=== PATIENT | female | born 1965 | race Caucasian/White ===

== ENCOUNTER → 2018-06-30 | Emergency (ER) | payer SELFPAY ==
[~2018-06-30] MED LIST: Flomax 0.4 MG ONE; Flomax 0.4 MG PO SCH; MORPHINE SULFATE 2 MG INJ IV ONE; MORPHINE SULFATE 2 MG INJ ONE; PYRIDIUM 200 MG ONE; PYRIDIUM 200 MG PO STA; ROCEPHIN 1 Gm-D5w 50 ml Bag** 1 G/50 ML IVPB IV ONE; ROCEPHIN 1 Gm-D5w 50 ml Bag** 1 G/50 ML IVPB IV STA; Sodium Chloride 0.9% 1000 ML 1,000 ML IV STA; Sodium Chloride 0.9% 1000 ML 1,000 ML ONE; Zofran 4 MG/2 ML VIAL IV ONE; Zofran 4 MG/2 ML VIAL ONE
[2018-06-30 05:04] LABS: BASOPHIL % 0.2 % (0.0-0.4); Basophil (Absolute #) 0.02 (0-0.4); Eosinophil % 0.9 % (0.00-5.0); Granulocyte Absolute (ANC) 8.19 (1.4-6.9); Granulocytes % 70.6 % (36.0-66.0); Hemoglobin 13.4 gm/dl (12.0-16.0); Lymphocyte (Absolute #) 2.43 (1.0-4.6); Lymphocytes % 20.9 % (24.0-44.0); Mean Cell Volume 89.3 fl (78-100); Mean Corpuscular Hemoglobin 29.2 pg (26-32); Mean Corpuscular Hgb Concent. 32.7 g/dl (32-36); Mean Platelet Volume 10.8 fl (6-9.5); Monocyte (Absolute #) 0.86 (0.0-1.3); Monocytes % 7.4 % (0.0-12.0); Platelet Count 291 K/mm3 (150-450); Red Blood Count 4.59 M/mm3 (4.1-5.4); Red Cell Distribution Width 13.3 % (11.5-14.0); White Blood Count 11.6 K/mm3 (4.0-10.5)
[2018-06-30 05:13] LABS: ALBUMIN 4.6 g/dL (3.5-5.0); ALKALINE PHOSPHATASE 96 U/L (38-126); ANION GAP 12.4 MEQ/L (5-15); BLOOD UREA NITROGEN 14 mg/dL (7-17); CHLORIDE 100 mmol/L (98-107); Calcium 9.5 mg/dL (8.4-10.2); Carbon Dioxide 29 mmol/L (22-30); Glucose 113 mg/dL (74-106); Potassium 3.7 mmol/L (3.5-5.1); SGOT/AST 49 U/L (14-36); SGPT/ALT 28 U/L (0-35); SODIUM 137 mmol/L (137-145); Total Protein 7.5 g/dL (6.3-8.2)
[2018-06-30 05:16] LABS: Appearance CLEAR (CLEAR); Bacteria RARE /HPF (NEGATIVE); Bilirubin NEGATIVE (NEGATIVE); Blood LARGE Ery/ul (0-5); Glucose NEGATIVE (NEGATIVE); Ketones NEGATIVE (NEGATIVE); Leukocyte Esterase SMALL (NEGATIVE); Nitrite NEGATIVE (NEGATIVE); Protein,Urine Dip NEGATIVE (Negative); Specific Gravity 1.002 (1.005-1.025); Urobilinogen NEGATIVE mg/dL (0-1)
[2018-06-30 05:19] VITALS: BP 122/71; O2SAT 100
--- NOTE | 2018-06-30 05:57 | ERPHSYRPT ---
- History of Present Illness Historian: patient Exam Limitations: no limitations Patient Subjective Stated Complaint: pt is alert and oriented. pt is ambulatory with a steady gait. pt comes in with c/o right flank pain with difficulty urinating, burning with urination, bladder spasms, and urgency. pt urine is pale yellow, very clear. pt states these symptoms started on 06/29/18. Triage Nursing Assessment: see above Physician History: Pt is a 53 y/o female that presented with severe dysuria, bladder spasms, and frequency. Pt denies F/C/S. No SOB or cough. No diarrhea and abdominal pain. Pt does have N/V, and has CVA pain on the R. Timing/Duration: today, gradual onset Activities at Onset: none Quality: aching, burning, cramping Abdominal Pain Onset Location: flank (on R) Pain Radiation: no radiation Severity of Pain-Max: severe Severity of Pain-Current: moderate Modifying Factors: Improves With: nothing Previous symptoms: no prior history Allergies/Adverse Reactions: No Known Drug Allergies Allergy (Unverified 06/30/18 04:45) Immunizations Up to Date: Yes - Review of Systems Constitutional: No Fever, No Chills Respiratory: No Cough, No Dyspnea Cardiac: No Chest Pain, No Edema, No Syncope Abdominal/Gastrointestinal: No Abdominal Pain, No Nausea, No Vomiting, No Diarrhea Genitourinary Symptoms: Dysuria, Frequency, Urgency, Flank Pain (On R) Musculoskeletal: No Back Pain, No Neck Pain Neurological: No Dizziness, No Focal Weakness, No Sensory Changes Endocrine: No Symptoms - Past Medical History Pertinent Past Medical History: No Neurological History: No Pertinent History ENT History: No Pertinent History Cardiac History: No Pertinent History Respiratory History: No Pertinent History Endocrine Medical History: No Pertinent History Musculoskeletal History: No Pertinent History GI Medical History: No Pertinent History History: Other Psycho-Social History: No Pertinent History Female Reproductive Disorders: Endometriosis - Past Surgical History Past Surgical History: Yes Neuro Surgical History: No Pertinent History Cardiac: No Pertinent History Respiratory: No Pertinent History Gastrointestinal: No Pertinent History Genitourinary: No Pertinent History Musculoskeletal: No Pertinent History Female Surgical History: Other Other Surgical History: laproscopic surgery for Endo, and possible tubal - Social History Smoking Status: Never smoker Drug Use: none - Female History Hx Now: No - Nursing Vital Signs Nursing Vital Signs: Initial Vital Signs Temperature 97.5 F 06/30/18 04:33 Pulse Rate 82 06/30/18 04:33 Respiratory Rate 16 06/30/18 04:33 Blood Pressure 124/73 06/30/18 04:33 O2 Sat by Pulse Oximetry 99 06/30/18 04:33 Pain Scale Pain Intensity 9 - Physical Exam General Appearance: moderate distress, alert Eye Exam: PERRL/EOMI, eyes nml inspection Ears, Nose, Throat Exam: normal ENT inspection, pharynx normal, moist mucous membranes Respiratory Exam: normal breath sounds, lungs clear, No respiratory distress Cardiovascular Exam: regular rate/rhythm, normal heart sounds Gastrointestinal/Abdomen Exam: soft, No tenderness, No mass Back Exam: CVA tenderness (On the right) Extremity Exam: normal inspection, normal range of motion, pelvis stable Neurologic Exam: alert, oriented x 3, cooperative, normal mood/affect, nml cerebellar function, sensation nml, No motor deficits SpO2 Interpretation: normal SpO2: 100 - Course Nursing assessment & vital signs reviewed: Yes - CT Exams Abdomen/Pelvis CT Interpretation: Other (Hydronephrosis on the R, bladder thickening) Ordered Tests: Active Orders 24 hr Category Date Time Status IV Insertion STAT Care 06/30/18 04:51 Active ABDOMEN AND PELVIS W/0 CONTRAS [CT] Stat Exams 06/30/18 04:52 Taken CBC W DIFF Stat Lab 06/30/18 04:55 Completed CMP Stat Lab 06/30/18 04:55 Completed CULTURE,URINE Stat Lab 06/30/18 04:58 Received UA W/RFX UR CULTURE Stat Lab 06/30/18 04:58 Completed Medication Summary Generic Name Dose Route Start Last Admin Trade Name Freq PRN Reason Stop Dose Admin Ceftriaxone Sodium/Dextrose 1 g in 50 mls @ 100 mls/hr 06/30/18 06:23 06:29 Rocephin 1 Gm-D5w 50 Ml Bag IV 06/30/18 06:52 1 g/hr STAT STA 50 mls/hr Administration Discontinued Medications Generic Name Dose Route Start Last Admin Trade Name Freq PRN Reason Stop Dose Admin Sodium Chloride 1,000 mls @ 999 mls/hr 06/30/18 04:51 06/30/18 05:12 Sodium Chloride 0.9% 1000 Ml IV 06/30/18 05:51 999 mls/hr .Q1H1M STA Administration Sodium Chloride Confirm 06/30/18 04:58 Sodium Chloride 0.9% 1000 Ml Administered 06/30/18 04:59 Dose 1,000 mls @ ud .ROUTE .STK-MED ONE Ceftriaxone Sodium/Dextrose Confirm 06/30/18 06:26 Rocephin 1 Gm-D5w 50 Ml Bag Administered 06/30/18 06:27 Dose 1 g in 50 mls @ ud IV .STK-MED ONE Morphine Sulfate 2 mg 06/30/18 04:51 Morphine Sulfate 2 Mg Inj IV 06/30/18 04:52 STAT ONE Morphine Sulfate Confirm 06/30/18 04:58 Morphine Sulfate 2 Mg Inj Administered 06/30/18 04:59 Dose 2 mg .ROUTE .STK-MED ONE Ondansetron HCl 4 mg 06/30/18 05:34 06/30/18 05:40 Zofran 4 Mg/2 Ml Vial IV 06/30/18 05:35 4 mg STAT ONE Administration Ondansetron HCl Confirm 06/30/18 05:35 Zofran 4 Mg/2 Ml Vial Administered 06/30/18 05:36 Dose 4 mg .ROUTE .STK-MED ONE Phenazopyridine HCl 200 mg 06/30/18 04:53 06/30/18 05:09 Pyridium 200 Mg PO 06/30/18 04:54 200 mg ONCE STA Administration Phenazopyridine HCl Confirm 06/30/18 04:58 Pyridium 200 Mg Administered 06/30/18 04:59 Dose 200 mg .ROUTE .STK-MED ONE Lab/Rad Data: Laboratory Result Diagrams 06/30/18 04:55 06/30/18 04:55 Laboratory Results 06/30/18 06/30/18 06/30/18 Range/Units 04:58 04:55 04:55 WBC 11.6 H (4.0-10.5) K/mm3 RBC 4.59 (4.1-5.4) M/mm3 Hgb 13.4 (12.0-16.0) gm/dl Hct 41.0 (35-47) % MCV 89.3 (78-100) fl MCH 29.2 (26-32) pg MCHC 32.7 (32-36) g/dl RDW 13.3 (11.5-14.0) % Plt Count 291 (150-450) K/mm3 MPV 10.8 H (6-9.5) fl Gran % 70.6 H (36.0-66.0) % Eos # (Auto) 0.10 (0-0.5) Absolute Lymphs (auto) 2.43 (1.0-4.6) Absolute Monos (auto) 0.86 (0.0-1.3) Lymphocytes % 20.9 L (24.0-44.0) % Monocytes % 7.4 (0.0-12.0) % Eosinophils % 0.9 (0.00-5.0) % Basophils % 0.2 (0.0-0.4) % Absolute Granulocytes 8.19 H (1.4-6.9) Basophils # 0.02 (0-0.4) Sodium 137 (137-145) mmol/L Potassium 3.7 (3.5-5.1) mmol/L Chloride 100 (98-107) mmol/L Carbon Dioxide 29 (22-30) mmol/L Anion Gap 12.4 (5-15) MEQ/L BUN 14 (7-17) mg/dL Creatinine 0.60 (0.52-1.04) mg/dL Estimated GFR > 60.0 ML/MIN Glucose 113 H (74-106) mg/dL Calcium 9.5 (8.4-10.2) mg/dL Total Bilirubin 0.40 (0.2-1.3) mg/dL AST 49 H (14-36) U/L ALT 28 (0-35) U/L Alkaline Phosphatase 96 (38-126) U/L Serum Total Protein 7.5 (6.3-8.2) g/dL Albumin 4.6 (3.5-5.0) g/dL Urine Color COLORLESS (YELLOW) Urine Appearance CLEAR (CLEAR) Urine pH 7.0 (5-6) Ur Specific [place] 1.002 (1.005-1.025) Urine Protein NEGATIVE (Negative) Urine Ketones NEGATIVE (NEGATIVE) Urine Blood LARGE (0-5) Joe/ul Urine Nitrite NEGATIVE (NEGATIVE) Urine Bilirubin NEGATIVE (NEGATIVE) Urine Urobilinogen NEGATIVE (0-1) mg/dL Ur Leukocyte Esterase SMALL (NEGATIVE) Urine WBC (Auto) 11-15 (0-5) /HPF Urine RBC (Auto) NONE (0-2) /HPF U Epithel Cells (Auto) NONE (FEW) /HPF Urine Bacteria (Auto) RARE (NEGATIVE) /HPF Urine Culture Reflexed YES (NO) Urine Glucose NEGATIVE (NEGATIVE) mg/dL - Progress Progress: unchanged Progress Note: 06/30/18 05:59 Pt is a 53 y/o female with severe dysuria, frequency and urgency. She did get 200mg Pyridium and CT. Pt refused Morphine. Zofran 4mg was given once. Ceftriaxone 1gr IV was given. CT showes hydronephrosis on the R, and bladder thickening. [facility], and Dr Jauregui accepted the pt. Urology will be able to see the pt there. If needed, will give Ativan before leaving the ER with ambulance. 06/30/18 06:36 - Departure Time of Disposition: 06:38 Departure Disposition: Transfer Clinical Impression: Hydronephrosis Condition: Stable Critical Care Time: No Referrals: MARY KAUR [Primary Care Provider] - Additional Instructions: [facility] to [facility]. She got Zofran 4mg IV, Rocephin 1gr IV, Flomax 0.4 PO, and Pyridium 200mg once. Dr Jauregui accepting.
[2018-06-30 06:44] VITALS: PULSE 85
--- NOTE | 2018-06-30 09:36 | XRAY ---
Indication: Dysuria. Urgency. Abdomen/flank pain. Multiple contiguous axial images obtained through the abdomen and pelvis without contrast as ordered. Comparison: None Lung bases are clear. Heart is not enlarged. Noncontrasted stomach and bowel loops appear nonobstructed. Normal appendix. No free fluid/air. Minimal right hydronephrosis and slightly prominent right ureter without calculus, possibly from recent passage of calculus. Incidental 2 cm right adrenal adenoma and 1 cm inferior right lobe hepatic cyst. Remaining liver, gallbladder, pancreas, spleen, left adrenal gland, kidneys, ureters, bladder, and aorta appear unremarkable for noncontrast exam. Osseous structures intact. No ventral or inguinal hernias. Impression: 1. Minimal right hydronephrosis and minimal prominent right ureter, possibly from recent passage of calculus. 2. Incidental 2 cm right adrenal adenoma and 1 cm hepatic cyst. Comment: Preliminary interpretation was made by [facility] who does not report incidental right adrenal mass. CT DI 20.40
== END ==
LOC: ED 04:23
DX: N13.30 Unspecified hydronephrosis (principal); R30.0 Dysuria; R35.0 Frequency of micturition; R39.15 Urgency of urination
CPT/HCPCS: 36000; 36415; 74176; 80053; 81001; 85025; 87077; 87086; 87186; 96360; 96365; 96374; 99285; J0696; J2270; J2405; A9270-GY